=== PATIENT | female | born 2000 | race Caucasian/White ===

== ENCOUNTER 2023-05-11 00:50 | Emergency (ER) | payer MEDICAID, OTHER ==
[~2023-05-11] VITALS: Ht 152.4 cm; Wt 64.0 kg
[2023-05-11 01:23] VITALS: BP 112/78; RESP 18; TEMP 98.5; O2SAT 100
[2023-05-11 02:05] VITALS: PULSE 110
[2023-05-11] MEDS ORDERED: IBUP-2028 MT (05:11)
== END 2023-05-11 06:26 | disposition home or self-care (01) ==
LOC: ER 00:50
DX: S20.219A Contusion of unspecified front wall of thorax, initial encounter (principal); S50.12XA Contusion of left forearm, initial encounter; F19.90 Other psychoactive substance use, unspecified, uncomplicated; V98.8XXA Other specified transport accidents, initial encounter; Y93.89 Activity, other specified; Y92.89 Other specified places as the place of occurrence of the external cause; Y99.8 Other external cause status
CPT/HCPCS: 71045; 73090; 99284